=== PATIENT | female | born 1985 | race Caucasian/White ===

== ENCOUNTER 2017-02-16 16:40 | Emergency (ER) | payer OTHER ==
[2017-02-16 17:26] VITALS: BP 115/62
--- NOTE | 2017-02-16 17:54 | UC ---
Knee Pain HPI - HPI Summary HPI Summary: complaint of right knee pain since 11/2016- denies trauma at that time-x-ray at that time and then went to Dr Carrington- no need for MRI and sent her home 12/2016 constant aching pain that varies in severity pain in medial side of patella pain is worse with ambulation can't wear a stabilzing brace because straightening her leg makes the pain worse occasional swelling feels unstable at times- feels like her knee is twisted bottom of leg feels straight while the top is twisting or moving forward taking ibuprofen for pain with some relief - History of Current Complaint Chief Complaint: UCLowerExtremity Stated Complaint: RIGHT KNEE PAIN Time Seen by Provider: 02/16/17 17:47 Hx Obtained From: Patient Hx Last Menstrual Period: 02/14/17 - Allergies/Home Medications Allergies/Adverse Reactions: Allergies Allergy/AdvReac Type Severity Reaction Status Date / Time Nortriptyline Allergy Hallucinati Verified 02/16/17 17:26 ons Topiramate [From Topamax] Allergy See Comment Verified 02/16/17 17:26 steroids Allergy See Comment Uncoded 02/16/17 17:26 PMH/Surg Hx/FS Hx/Imm Hx Previously Healthy: Yes Psychological History: Depression - Surgical History Surgical History: Yes Surgery Procedure, Year, and Place: 2006 - Family History Known Family History: Positive: None, Hypertension, Diabetes Family History: CHOLESTEROL, MIGRAINES - Social History Occupation: Employed Full-time Lives: With Family Alcohol Use: Rare Substance Use Type: None Smoking Status (MU): Current Every Day Smoker Amount Used/How Often: 4 cig./day Have You Smoked in the Last Year: Yes Review of Systems Constitutional: Negative Skin: Negative Eyes: Negative ENT: Negative Respiratory: Negative Cardiovascular: Negative Gastrointestinal: Negative Genitourinary: Negative Motor: Negative Neurovascular: Negative Musculoskeletal: Other: - right knee pain Neurological: Negative Psychological: Negative All Other Systems Reviewed And Are Negative: Yes Physical Exam Triage Information Reviewed: Yes Appearance: No Pain Distress, Well-Nourished Vital Signs: Initial Vital Signs Temp 97.4 F 02/16/17 17:22 Pulse 81 02/16/17 17:22 Resp 14 02/16/17 17:22 BP 115/62 02/16/17 17:22 Pulse Ox 100 02/16/17 17:22 Vital Signs Reviewed: Yes Eyes: Positive: Conjunctiva Clear ENT: Positive: Pharynx normal, TMs normal Neck: Positive: No Lymphadenopathy Respiratory: Positive: Lungs clear, Normal breath sounds, No respiratory distress, No accessory muscle use Cardiovascular: Positive: RRR, No Murmur, Pulses Normal Musculoskeletal: Positive: Other: - No bony deformities, tenderness around patella, pain in medial side of knee. No bakers cyst. limited ROM (extension/ flexion). Limited internal and external rotation. Medial and lateral meniscus pain ; negative Anterior/Posterior Drawer signs, No effusion, bulge/balloon sign. Neurological: Positive: Alert Psychological Exam: Normal Skin Exam: Normal Knee Pain Course/Dx - Course Course Of Treatment: exam completed. no indication for x-ray at this time- no new trauma since 11/2016. will refer to ortho for further evaluation and treatment - Differential Dx/Diagnosis Differential Diagnosis/HQI/PQRI: Internal Derangement Of Knee, Sprain, Strain Provider Diagnoses: right knee internal derangement of knee Discharge - Discharge Plan Condition: Stable Disposition: HOME Patient Education Materials: Knee Pain (ED), RICE Therapy (ED) Referrals: Raymundo Mcbride DO [Primary Care Provider] - Singh Myers MD [Medical Doctor] - Additional Instructions: Please call diesel engine specialist for an appointment. They will evaluate and determine your treatment. Use crutches as needed until you are seen by orthopedics. Take acetaminophen or ibuprofen to control pain and reduce inflammation. Please review your discharge instructions. If your symptoms worsen call diesel engine specialist or return to urgent care.
== END 2017-02-16 18:35 | disposition home or self-care (01) ==
LOC: UCCORT 16:40
DX: M23.91 Unspecified internal derangement of right knee (principal); F17.210 Nicotine dependence, cigarettes, uncomplicated
CPT/HCPCS: 99211; G0463

== ENCOUNTER 2018-01-09 08:09 | Emergency (ER) | payer OTHER ==
--- NOTE | 2018-01-09 09:33 | ED ---
GI/ HPI - HPI Summary HPI Summary: 32F at 31 weeks LMP may 2 FRIDA apr 09 presents with contractions for the past day. The contractions are every 10 mins lasting a minute with lower abdominal pain that started today. She states that had son at 22 weeks who and daughter at 36 weeks but was dilated 6cm at 32 weeks so was on bed rest and had done. has heart shaped uterus so is high risk and sees ob in [place] and does not expect to carry till full term. heart 137. history of migraines. - History of Current Complaint Hx Last Menstrual Period: 02/14/17 Pain Intensity: 5 <Sharon Steiner - Last Filed: 01/09/18 09:58> <Kelin Davidson - Last Filed: 01/11/18 11:54> - History of Current Complaint Chief Complaint: EDOBProblems Time Seen by Provider: 01/09/18 09:19 Stated Complaint: OB PROBLEM 31 WEEKS PRG - Allergy/Home Medications Allergies/Adverse Reactions: Allergies Allergy/AdvReac Type Severity Reaction Status Date / Time MS Nortriptyline Allergy Hallucinati Verified 02/16/17 17:26 [Nortriptyline] ons MS Topiramate [From Topamax] Allergy See Comment Verified 02/16/17 17:26 steroids Allergy See Comment Uncoded 02/16/17 17:26 Home Medications: Home Medications Ascorbic Acid TAB* [Vitamin C TAB*] 500 mg PO BID 01/09/18 [History Confirmed 01/09/18] Ferrous Sulfate TAB* 325 mg PO BID 01/09/18 [History Confirmed 01/09/18] Vit/Iron Fum/Folic AC [Right Step Vit Tab] 1 tab PO DAILY [History Confirmed 01/09/18] PMH/Surg Hx/FS Hx/Imm Hx Endocrine/Hematology History: Denies: Hx Diabetes, Hx Thyroid Disease Cardiovascular History: Denies: Hx Hypertension Respiratory History: Denies: Hx Asthma, Hx Chronic Obstructive Pulmonary Disease (COPD) GI History: Denies: Hx Ulcer Musculoskeletal History: Reports: Hx Rheumatoid Arthritis - Surgical History Surgery Procedure, Year, and Place: 2006 Infectious Disease History: No Infectious Disease History: Denies: Hx Hepatitis, Hx Human Immunodeficiency Virus (HIV), Hx of Known/ Suspected MRSA, Hx Shingles, Hx Tuberculosis, History Other Infectious Disease, Traveled Outside the [place] in Last 30 Days - Family History Known Family History: Positive: None, Hypertension, Diabetes Family History: CHOLESTEROL, MIGRAINES - Social History Alcohol Use: Rare Substance Use Type: Reports: None Smoking Status (MU): Current Every Day Smoker Amount Used/How Often: 4 cig./day Have You Smoked in the Last Year: Yes <Sharon Steiner - Last Filed: 01/09/18 09:58> Review of Systems Negative: Fever Negative: Chest Pain Negative: Shortness Of Breath Positive: Abdominal Pain - contractions. Negative: Vomiting, Nausea Negative: dysuria All Other Systems Reviewed And Are Negative: Yes <Sharon Steiner - Last Filed: 01/09/18 09:58> Physical Exam Triage Information Reviewed: Yes Vital Signs On Initial Exam: Initial Vitals Temp Pulse Resp BP Pulse Ox 98.8 F 95 18 139/82 100 01/09/18 08:17 01/09/18 08:17 01/09/18 08:17 01/09/18 08:17 01/09/18 08:17 Vital Signs Reviewed: Yes Appearance: Positive: Well-Appearing Skin: Positive: Warm, Dry Head/Face: Positive: Normal Head/Face Inspection Eyes: Positive: Normal, Conjunctiva Clear ENT: Positive: Pharynx normal Respiratory/Lung Sounds: Positive: Clear to Auscultation, Breath Sounds Present Cardiovascular: Positive: Normal, RRR Abdomen Description: Positive: Other: - baby felt above umbilicius Musculoskeletal: Positive: Normal Neurological: Positive: Normal Psychiatric: Positive: Normal <Sharon Steiner - Last Filed: 01/09/18 09:58> Vital Signs On Initial Exam: Initial Vitals Temp Pulse Resp BP Pulse Ox 98.8 F 95 18 139/82 100 01/09/18 08:17 01/09/18 08:17 01/09/18 08:17 01/09/18 08:17 01/09/18 08:17 <Kelin Davidson - Last Filed: 01/11/18 11:54> Diagnostics - Vital Signs Vital Signs Temp Pulse Resp BP Pulse Ox 01/09/18 08:17 98.8 F 95 18 139/82 100 <Sharon Steiner - Last Filed: 01/09/18 09:58> - Vital Signs Vital Signs Temp Pulse Resp BP Pulse Ox 01/09/18 10:06 98.8 F 86 16 122/59 99 01/09/18 08:17 98.8 F 95 18 139/82 100 - Laboratory Lab Results: Lab Results 01/09/18 Range/Units 09:53 Urine Color Straw Urine Appearance Clear Urine pH 7.0 (5-9) Ur Specific [place] 1.002 L (1.010-1.030) Urine Protein Negative (Negative) Urine Ketones Negative (Negative) Urine Blood Negative (Negative) Urine Nitrate Negative (Negative) Urine Bilirubin Negative (Negative) Urine Urobilinogen Negative (Negative) Ur Leukocyte Esterase Negative (Negative) Urine Glucose Negative (Negative) Lab Statement: Any lab studies that have been ordered have been reviewed, and results considered in the medical decision making process. <Kelin Davidson - Last Filed: 01/11/18 11:54> GIGU Course/Dx - Course Course Of Treatment: 32F at 31 weeks LMP may 21 FRIDA apr 09 presents with contractions for the past day. The contractions are every 10 mins lasting a minute with lower abdominal pain that started today. She states that had son at 22 weeks who and daughter at 36 weeks but was dilated 6cm at 32 weeks so was on bed rest and had done. has heart shaped uterus so is high risk and sees ob in [place] and does not expect to carry till full term. heart 137. history of migraines. baby felt above umbilcius. called ob and they said to transfer to them. - Diagnoses Differential Diagnoses - Female: , Urinary Tract Infection <Sharon Steiner - Last Filed: 01/09/18 09:58> <Kelin Davidson - Last Filed: 01/11/18 11:54> - Diagnoses Provider Diagnoses: Abdominal pain during intrauterine Discharge - Sign-Out/Discharge Documenting (check all that apply): Discharge/Admit/Transfer - Billing Disposition and Condition Condition: GOOD Disposition: TRANS-OB <Sharon Steiner - Last Filed: 01/09/18 09:58> - Billing Disposition and Condition Condition: GOOD Disposition: TRANS-OB <Kelin Davidson - Last Filed: 01/11/18 11:54> - Discharge Plan Condition: Good Disposition: TRANSFER TO OB (HEALTH SYSTEM) Referrals: Raymundo Mcbride DO [Primary Care Provider] - Attestation Statement User Type: Provider - I was available for consult. This patient was seen by the MARIBEL. The patient was not presented to, seen by, or examined by me. -Cecily <Kelin Davidson - Last Filed: 01/11/18 11:54>
[2018-01-09 10:02] LABS: Urine Appearance Clear; Urine Blood Negative (Negative); Urine Color Straw; Urine Ketones Negative (Negative); Urine Protein Negative (Negative); Urine Specific Gravity 1.002 (1.010-1.030); Urine Urobilinogen Negative (Negative)
[2018-01-09 10:11] VITALS: BP 122/59
== END 2018-01-09 10:06 | disposition other institution (70) ==
LOC: ED 08:09
DX: O26.893 Other specified pregnancy related conditions, third trimester (principal); Z3A.31 31 weeks gestation of pregnancy
CPT/HCPCS: 81003; 99282

== ENCOUNTER 2019-09-25 21:03 | Emergency (ER) | payer OTHER ==
[2019-09-25 21:15] VITALS: BP 124/71
--- NOTE | 2019-09-25 21:37 | UC ---
Neck Pain HPI - HPI Summary HPI Summary: The patient is a 34-year-old female that had difficulty with her greater than 100 pound dog last p.m. She was trying to control him by holding his collar with her right hand. The dog was thrashing about. She went to bed without neck pain. This morning when she woke up she states it felt like she slept wrong on her neck. She has had progressively worsening neck pain. She has difficulty extending her neck. She can turn her head side to side but her range of motion is limited. Tonight she had trouble swallowing food. - History of Current Complaint Chief Complaint: UCBackPain Stated Complaint: NECK PAIN Time Seen by Provider: 09/25/19 21:17 Hx Obtained From: Patient Hx Last Menstrual Period: nexplanon- 2weeks ago Timing: Constant Onset/Duration: Gradual Onset Severity: Severe Pain Intensity: 8 Pain Scale Used: 0-10 Numeric Location: Diffuse Character: Aching, Spasmotic Aggravating Factors: Position, Movement Alleviating Factors: Nothing Associated Signs & Symptoms: Negative: Negative, Swelling, Redness, Bruising, Fever, Nuchal Rigity, Weakness, Headache, Paresthesia Head: 1 - pain 2 - pain - Allergies/Home Medications Allergies/Adverse Reactions: Allergies Allergy/AdvReac Type Severity Reaction Status Date / Time nortriptyline Allergy Hallucinati Verified 09/25/19 21:16 ons topiramate Allergy See Comment Verified 09/25/19 21:16 steroids Allergy See Comment Uncoded 09/25/19 21:17 Home Medications: Home Medications Ibuprofen 400 mg PO Q6H PRN 09/25/19 [History Confirmed 09/25/19] Lidocaine [Salonpas] 1 each TP DAILY PRN 09/25/19 [History Confirmed 09/25/19] PMH/Surg Hx/FS Hx/Imm Hx Previously Healthy: Yes - ? connective tissue disorder - Surgical History Surgical History: Yes Surgery Procedure, Year, and Place: 2006-02/2018. T&A. Ear drum surgery 1996 - Family History Known Family History: Positive: None, Hypertension, Diabetes Family History: CHOLESTEROL, MIGRAINES - Social History Alcohol Use: Rare Substance Use Type: None Smoking Status (MU): Current Every Day Smoker Amount Used/How Often: 5 cig./day Have You Smoked in the Last Year: Yes Review of Systems All Other Systems Reviewed And Are Negative: Yes Constitutional: Positive: Negative Skin: Positive: Negative Eyes: Positive: Negative ENT: Positive: Negative Respiratory: Positive: Negative Cardiovascular: Positive: Negative Gastrointestinal: Positive: Negative Genitourinary: Positive: Negative Motor: Positive: Negative Neurovascular: Positive: Negative Musculoskeletal: Positive: Arthralgia, Myalgia Neurological: Positive: Negative Psychological: Positive: Negative Physical Exam Triage Information Reviewed: Yes Appearance: Well-Appearing, No Pain Distress, Well-Nourished Vital Signs: Initial Vital Signs Temp 98.3 F 09/25/19 21:09 Pulse 87 09/25/19 21:09 Resp 18 09/25/19 21:09 BP 124/71 09/25/19 21:09 Pulse Ox 99 09/25/19 21:09 Vital Signs Reviewed: Yes Eyes: Positive: Conjunctiva Clear ENT: Positive: Hearing grossly normal, Uvula midline. Negative: Nasal congestion, Nasal drainage, Tonsillar swelling, Tonsillar exudate, Trismus, Muffled voice, Hoarse voice Dental: Positive: Other: - pain with extension and Neck: Positive: Other: - see image. Negative: Supple, Nontender Respiratory: Positive: Lungs clear, Normal breath sounds, No respiratory distress, No accessory muscle use Cardiovascular: Positive: RRR, No Murmur Musculoskeletal: Positive: ROM Intact, No Edema Neurological: Positive: Alert Psychological Exam: Normal Skin Exam: Normal Diagnostics - Radiology No standard instances Radiology Interpretation Completed By: ED Physician Summary of Radiographic Findings: loss of lordosis Neck Pain Course/Dx - Differential Dx/Diagnosis Provider Diagnosis: Cervical muscle strain Discharge ED - Sign-Out/Discharge Documenting (check all that apply): Patient Departure All imaging exams completed and their final reports reviewed: No - Discharge Plan Condition: Stable Disposition: HOME Patient Education Materials: Cervical Strain (ED), Soft Cervical Collar (ED) Forms: *Work Release Referrals: Raymundo Mcbride DO [Primary Care Provider] - As Soon As Possible - Billing Disposition and Condition Condition: STABLE Disposition: Home
[2019-09-25] MEDS ORDERED: Cyclobenzaprine TAB* 10 MG PO ONE (21:55)
--- NOTE | 2019-09-26 10:26 | UC ---
- Progress Note Progress Note: XR wet read correct Course/Dx - Diagnoses Provider Diagnoses: Cervical muscle strain Discharge ED - Sign-Out/Discharge Documenting (check all that apply): Post-Discharge Follow Up All imaging exams completed and their final reports reviewed: Yes - Discharge Plan Condition: Stable Disposition: HOME Prescriptions: Cyclobenzaprine (NF) [Cyclobenzaprine 5 MG (NF)] 5 - 10 mg PO TID PRN #21 tab PRN Reason: Spasms - Neck Patient Education Materials: Cervical Strain (ED), Soft Cervical Collar (ED) Forms: *Work Release Referrals: Raymundo Mcbride DO [Primary Care Provider] - As Soon As Possible - Billing Disposition and Condition Condition: STABLE Disposition: Home
== END 2019-09-25 22:08 | disposition home or self-care (01) ==
LOC: UCEAST 21:03
DX: S16.1XXA Strain of muscle, fascia and tendon at neck level, initial encounter (principal); X50.9XXA Other and unspecified overexertion or strenuous movements or postures, initial encounter; Y92.9 Unspecified place or not applicable; Z88.8 Allergy status to other drugs, medicaments and biological substances; F17.210 Nicotine dependence, cigarettes, uncomplicated
CPT/HCPCS: 72050; 99212; A9270-GY; G0463